=== PATIENT | female | born 1990 | race Caucasian/White ===

== ENCOUNTER → 2017-08-01 | Outpatient (CLI) | payer OTHER | LOC: US 07-26 15:00 | DX: Z34.81 Encounter for supervision of other normal pregnancy, first trimester (principal); Z3A.01 Less than 8 weeks gestation of pregnancy ==

== ENCOUNTER → 2018-02-11 | Outpatient (CLI) | payer OTHER | END | disposition home or self-care (01) | LOC: US 16:55 | DX: Z34.93 Encounter for supervision of normal pregnancy, unspecified, third trimester (principal); Z3A.35 35 weeks gestation of pregnancy ==

== ENCOUNTER → 2018-02-16 | Outpatient (CLI) | payer OTHER | LOC: LAB 10:06 | DX: O13.9 Gestational [pregnancy-induced] hypertension without significant proteinuria, unspecified trimester (principal) ==

== ENCOUNTER → 2021-08-26 | Outpatient (CLI) | payer OTHER, MEDICAID | END | disposition home or self-care (01) | LOC: LAB 10:50 | PROVIDERS: ATTEND Obstetrics & Gynecology | DX: Z34.93 Encounter for supervision of normal pregnancy, unspecified, third trimester (principal); R30.0 Dysuria; Z3A.30 30 weeks gestation of pregnancy ==

== ENCOUNTER 2022-09-08 10:07 | Emergency (ER) | payer OTHER, MEDICAID ==
[~2022-09-08] VITALS: Ht 167.6 cm; Wt 83.0 kg
[2022-09-08 10:53] VITALS: BP 141/87
[2022-09-08 11:24] LABS: BASO % 0.3 % (0.0-1.0); EOS % 0.3 % (1.0-4.0); HEMATOCRIT 38.5 % (37.0-47.0); LYMPH # 1.5 10*3/uL (1.3-4.4); LYMPH % 23.5 % (27.0-41.0); MEAN CELL VOLUME 91.9 fl (81.0-99.0); MEAN CORPUSCULAR HGB 30.8 pg (27.0-31.0); MEAN CORPUSCULAR HGB CONC 33.5 g/dl (33.0-37.0); MEAN PLATELET VOLUME 9.8 fl (9.6-12.3); MONO # 0.3 10*3/uL (0.1-1.0); MONO % 5.2 % (3.0-9.0); NEUT # 4.6 10*3/uL (2.3-7.9); NEUT % 70.5 % (47.0-73.0); PLATELET COUNT AUTOMATED 319 10*3/uL (130-400); RED BLOOD COUNT 4.19 10*6/uL (4.10-5.10); RED CELL DISTRI WIDTH 12.8 % (0-14.5); WHITE BLOOD COUNT 6.5 10*3/uL (4.8-10.8)
[2022-09-08 11:47] LABS: ALKALINE PHOSPHATASE 73 U/L (46-116); CHLORIDE 106 mmol/L (98-107); POTASSIUM 3.9 mmol/L (3.4-5.1); SGPT/ALT 13 U/L (10-49); TOTAL PROTEIN 6.8 gm/dL (6.0-8.0)
[2022-09-08 12:01] LABS: BUN < 5 mg/dl (9-23)
[2022-09-08] MEDS ORDERED: VALIUM5 MG PO (12:29)
[2022-09-08] MEDS ORDERED: ANTIVERT25 M2 PO (12:29)
== END 2022-09-08 12:33 | disposition home or self-care (01) ==
LOC: ED 10:07
PROVIDERS: Emergency Medicine
DX: R42 Dizziness and giddiness (principal); R20.0 Anesthesia of skin; M54.6 Pain in thoracic spine

== ENCOUNTER → 2022-09-28 | Outpatient (CLI) | payer OTHER, MEDICAID ==
[~2022-09-28] MED LIST: ANTIVERT25 M2 PO; VALIUM5 MG PO
== END | disposition home or self-care (01) ==
LOC: MRI 01:54
PROVIDERS: ATTEND Family Medicine
DX: R42 Dizziness and giddiness (principal); R20.2 Paresthesia of skin; R20.8 Other disturbances of skin sensation